=== PATIENT | female | born 1970 | race Caucasian/White ===

== ENCOUNTER 2016-04-01 19:18 | Emergency (ER) | payer SELFPAY ==
--- NOTE | 2016-04-01 19:45 | ED NURSING NOTES ---
Clinical Report - Nurses [facility] [address] [place] [address] 04/01/2016 19:21 Patient: RODDY HERNANDEZ TRIAGE Triage time 1937 PM. Acuity: LEVEL 4. Chief Complaint: ABDOMINAL PAIN, NAUSEA and VOMITING. Alert. No acute distress. --19:49 Darlin Loaiza R.N. 19:40 04/01/16. BP: 152/72. HR: 100. RR: 18. O2 saturation: 100% on room air. Pain level now: 11/03. --19:49 Darlin Loaiza R.N. late entry - 19:40 PM. --20:02 Darlin Loaiza R.N. 19:40 04/01/16. Temp: unable to obtain. --20:02 Darlin Loaiza R.N. Weight: 81.6 kg estimated. Height/Length: 65 inches Estimated. BMI: 30. --19:34 Darlin Loaiza R.N. Medications Unable to Obtain. Unknown. --19:40 Darlin Loaiza R.N. Medication/allergy information source: the patient. --19:49 Darlin Loaiza R.N. Allergies Unable to Obtain. --19:40 Darlin Loaiza R.N. History Arrived by private vehicle. Primary physician ([facility]). ( Pt states " I have gallstones, I was at [facility] for a HIDA scan friday" pt states n/v, abdominal pain "for 5 years and vomiting"). Relates location as in the right side of the back, right pelvic area and pelvic area. ( for approximately 2 weeks "ongoing for 5 years"). She has had nausea, vomiting and abdominal pain. Last oral intake by patient was dinner. 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 PAST MEDICAL HX: Immunizations: status is unknown. ( Unable to acquired hx from pt, once DOREEN Bejarano initiated triage, pt became frustrated, rolling her eyes, "was not expecting to get IV and blood work done". Pt was under the impression that all "clinics and hospitals system speak to one another" Educated, still patient did not want to stay "did not know what to expect" and took her belongings and left.). SOCIAL HX: No drug use. No recent travel. No known contact with a sick individual. ABUSE ASSESSMENT: No report of abuse. SELF HARM ASSESSMENT: A self harm assessment was performed. The patient answered "no" to the question "Do you have thoughts of harming or killing yourself?" and "Have you recently had thoughts about harming or killing others?". FALL RISK ASSESSMENT: Fall risk assessment completed. No fall risk identified. NUTRITIONAL RISK ASSESSMENT: The nutritional risk assessment revealed no deficiencies. FUNCTIONAL ASSESSMENT: Functional assessment: no impairments noted. LEARNING NEEDS ASSESSMENT: The learning needs assessment revealed no barriers. SKIN INTEGRITY ASSESSMENT: Skin integrity risk assessment completed. No skin integrity risk identified. --19:49 Darlin Loaiza R.N. PROBLEMS: Gallstone(s). --19:41 Darlin Loaiza R.N. ADDITIONAL SURGERIES: Unable to obtain. --19:41 Darlin Loaiza R.N. Interventions ID band on patient. --19:49 Darlin Loaiza R.N. DISPOSITION / DISCHARGE Departure time: 1940 PM. Condition at departure: unchanged. ( Pt decided to leave before any work up done, unable to obtain VS). The patient left prior to discharge education being provided. --19:50 Darlin Loaiza R.N. The patient left the Emergency Department without completion of treatment. The patient appears to be alert, oriented x4, coherent and in no acute distress. She stated is leaving the ED due to personal reasons (did not want to get lab work up). Prior to leaving the ED, she was advised to return if needed. She was informed of the risks of leaving and verbalized understanding of these risks. She left the Emergency Department ambulatory and via private vehicle. --19:52 Darlin Loaiza R.N. 19:40 04/01/16. BP: unable to obtain. HR: unable to obtain. RR: unable to obtain. O2 saturation: unable to obtain. Temp: unable to obtain. Pain level now unable to obtain. --20:00 Darlin Loaiza R.N. Locked/Released at 04/01/2016 20:03 by Darlin Loaiza R.N.
--- NOTE | 2016-04-01 19:45 | ED NURSING NOTES ---
Clinical Report - Nurses [facility] [address] [place] [address] 04/01/2016 19:21 Patient: RODDY HERNANDEZ TRIAGE Triage time 1937 PM. Acuity: LEVEL 4. Chief Complaint: ABDOMINAL PAIN, NAUSEA and VOMITING. Alert. No acute distress. --19:49 Darlin Loaiza R.N. 19:40 04/01/16. BP: 152/72. HR: 100. RR: 18. O2 saturation: 100% on room air. Pain level now: 11/03. --19:49 Darlin Loaiza R.N. late entry - 19:40 PM. --20:02 Darlin Loaiza R.N. 19:40 04/01/16. Temp: unable to obtain. --20:02 Darlin Loaiza R.N. Weight: 81.6 kg estimated. Height/Length: 65 inches Estimated. BMI: 30. --19:34 Darlin Loaiza R.N. Medications Unable to Obtain. Unknown. --19:40 Darlin Loaiza R.N. Medication/allergy information source: the patient. --19:49 Darlin Loaiza R.N. Allergies Unable to Obtain. --19:40 Darlin Loaiza R.N. History Arrived by private vehicle. Primary physician ([facility]). ( Pt states " I have gallstones, I was at [facility] for a HIDA scan friday" pt states n/v, abdominal pain "for 5 years and vomiting"). Relates location as in the right side of the back, right pelvic area and pelvic area. ( for approximately 2 weeks "ongoing for 5 years"). She has had nausea, vomiting and abdominal pain. Last oral intake by patient was dinner. 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 PAST MEDICAL HX: Immunizations: status is unknown. ( Unable to acquired hx from pt, once DOREEN Bejarano initiated triage, pt became frustrated, rolling her eyes, "was not expecting to get IV and blood work done". Pt was under the impression that all "clinics and hospitals system speak to one another" Educated, still patient did not want to stay "did not know what to expect" and took her belongings and left.). SOCIAL HX: No drug use. No recent travel. No known contact with a sick individual. ABUSE ASSESSMENT: No report of abuse. SELF HARM ASSESSMENT: A self harm assessment was performed. The patient answered "no" to the question "Do you have thoughts of harming or killing yourself?" and "Have you recently had thoughts about harming or killing others?". FALL RISK ASSESSMENT: Fall risk assessment completed. No fall risk identified. NUTRITIONAL RISK ASSESSMENT: The nutritional risk assessment revealed no deficiencies. FUNCTIONAL ASSESSMENT: Functional assessment: no impairments noted. LEARNING NEEDS ASSESSMENT: The learning needs assessment revealed no barriers. SKIN INTEGRITY ASSESSMENT: Skin integrity risk assessment completed. No skin integrity risk identified. --19:49 Darlin Loaiza R.N. PROBLEMS: Gallstone(s). --19:41 Darlin Loaiza R.N. ADDITIONAL SURGERIES: Unable to obtain. --19:41 Darlin Loaiza R.N. Interventions ID band on patient. --19:49 Darlin Loaiza R.N. DISPOSITION / DISCHARGE Departure time: 1940 PM. Condition at departure: unchanged. ( Pt decided to leave before any work up done, unable to obtain VS). The patient left prior to discharge education being provided. --19:50 Darlin Loaiza R.N. The patient left the Emergency Department without completion of treatment. The patient appears to be alert, oriented x4, coherent and in no acute distress. She stated is leaving the ED due to personal reasons (did not want to get lab work up). Prior to leaving the ED, she was advised to return if needed. She was informed of the risks of leaving and verbalized understanding of these risks. She left the Emergency Department ambulatory and via private vehicle. --19:52 Darlin Loaiza R.N. 19:40 04/01/16. BP: unable to obtain. HR: unable to obtain. RR: unable to obtain. O2 saturation: unable to obtain. Temp: unable to obtain. Pain level now unable to obtain. --20:00 Darlin Loaiza R.N. Locked/Released at 04/01/2016 20:03 by Darlin Loaiza R.N.
--- NOTE | 2016-04-01 20:27 | ED DISCHARGE INSTRUCTIONS ---
Patient: RODDY HERNANDEZ General Instructions [facility] VisitID: [id number] [address] [place] [address] 45y, F Registration Date/Time: 04/01/2016 abd pain of unclear etiology. (Electronically signed by Maliha Bejarano P.A.-C 04/01/2016 20:27)
--- NOTE | 2016-04-01 20:27 | ED MAR SUMMARY ---
..... Medication Administration Record [facility] [address], [place] [id number] Patient: RODDY HERNANDEZ Idalmis Visit ID: [id number] 45y, F Weight: 81.6 kg Height/Length: 65 in BMI: 30 ALLERGIES: Unable to Obtain
--- NOTE | 2016-04-01 20:27 | ED MED RECONCILIATION SUMMARY ---
Patient: RODDY HERNANDEZ Medication Reconciliation Report [facility] VisitID: [id number] [address] [place] [address] 45y, F Registration Date/Time: 04/01/2016 Weight: 81.6 kg Height/Length: 65 in. BMI: 30.0 ALLERGIES: Unable to Obtain The patient's Home Medications are listed below: Unable to obtain. The source(s) of the original Home Medication information: patient The following Medications were given to the patient in the Emergency Department: None. The following Medications were prescribed to the patient: None.
--- NOTE | 2016-04-01 20:27 | ED CLINICAL REPORT ---
Clinical Report - Physicians/Mid Levels [facility] [address] [place] [place] [address] 04/01/2016 19:21 Patient: RODDY HERNANDEZ Time Seen: 20:09 Apr 01 2016. Arrived- By private vehicle. Historian- patient. 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 It is described as "pain" and well localized and it is described as located in the right upper quadrant and epigastric area and in the upper abdomen and radiating to the right upper back. The patient has had nausea and vomiting. No diarrhea. (Abdominal pain over the last few weeks, worsening since Friday, worsening over the last 24 hours, specially after eating tacos. Patient reports recent ultrasound, HIDA scan, extensive workup for her gallbladder, at the [facility], which was inconclusive. Did not see them in clinic today, has been laying around and unable to eat at home today. NO diarrhea, no fevers/ no recent travel.). REVIEW OF SYSTEMS No constipation, black stools, difficulty with urination, pain with urination or missed periods. No headache or sore throat. All systems otherwise negative, except as recorded above. PAST HISTORY No history of gallstones or bowel obstruction. ADDITIONAL NOTES The nursing notes have been reviewed. PHYSICAL EXAM Vital Signs: 04/01/2016 19:40 BP: 152/72. HR: 100. RR: 18. O2 saturation: 100%. Pain level now: 9/10. Appearance: No acute distress. Neck: Normal inspection. CVS: Normal heart rate and rhythm. Heart sounds normal. Respiratory: No respiratory distress. Breath sounds normal. No accessory muscle use or decreased air movement. Abdomen: Mild tenderness in the right upper quadrant, epigastric area and left upper quadrant. Skin: Skin warm. Normal skin color. PROGRESS AND PROCEDURES Course of Care: After exam, and point patient will be obtaining lab workup, IV, and a gown for her, patient was frustrated, inquired if we can get labs from [facility], however at this hour unable to do so, and for patient that we are starting over here, as we have not met patient previously, and have to rule out any emergencies. Pt wished to go home at this time, and did not desire any work up. Patient is stable. Symptoms better. Patient/family counseled. Disposition: Discharged (ELOPED). CLINICAL IMPRESSION abd pain of unclear etiology. (Electronically signed by Maliha Bejarano P.A.-C 04/01/2016 20:27)
--- NOTE | 2016-04-01 20:27 | ED CLINICAL REPORT ---
Clinical Report - Physicians/Mid Levels [facility] [address] [place] [address] 04/01/2016 19:21 Patient: RODDY HERNANDEZ Time Seen: 20:09 Apr 01 2016. Arrived- By private vehicle. Historian- patient. 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 It is described as "pain" and well localized and it is described as located in the right upper quadrant and epigastric area and in the upper abdomen and radiating to the right upper back. The patient has had nausea and vomiting. No diarrhea. (Abdominal pain over the last few weeks, worsening since Friday, worsening over the last 24 hours, specially after eating tacos. Patient reports recent ultrasound, HIDA scan, extensive workup for her gallbladder, at the [facility], which was inconclusive. Did not see them in clinic today, has been laying around and unable to eat at home today. NO diarrhea, no fevers/ no recent travel.). REVIEW OF SYSTEMS No constipation, black stools, difficulty with urination, pain with urination or missed periods. No headache or sore throat. All systems otherwise negative, except as recorded above. PAST HISTORY No history of gallstones or bowel obstruction. ADDITIONAL NOTES The nursing notes have been reviewed. PHYSICAL EXAM Vital Signs: 04/01/2016 19:40 BP: 152/72. HR: 100. RR: 18. O2 saturation: 100%. Pain level now: 9/10. Appearance: No acute distress. Neck: Normal inspection. CVS: Normal heart rate and rhythm. Heart sounds normal. Respiratory: No respiratory distress. Breath sounds normal. No accessory muscle use or decreased air movement. Abdomen: Mild tenderness in the right upper quadrant, epigastric area and left upper quadrant. Skin: Skin warm. Normal skin color. PROGRESS AND PROCEDURES Course of Care: After exam, and point patient will be obtaining lab workup, IV, and a gown for her, patient was frustrated, inquired if we can get labs from [facility], however at this hour unable to do so, and for patient that we are starting over here, as we have not met patient previously, and have to rule out any emergencies. Pt wished to go home at this time, and did not desire any work up. Patient is stable. Symptoms better. Patient/family counseled. Disposition: Discharged (ELOPED). CLINICAL IMPRESSION abd pain of unclear etiology. (Electronically signed by Maliha Bejarano P.A.-C 04/01/2016 20:27)
--- NOTE | 2016-04-01 20:27 | ED MAR SUMMARY ---
..... Medication Administration Record [facility] [address] [place], [place] [id number] Patient: RODDY HERNANDEZ Idalmis Visit ID: [id number] 45y, F Weight: 81.6 kg Height/Length: 65 in BMI: 30 ALLERGIES: Unable to Obtain
--- NOTE | 2016-04-01 20:27 | ED DISCHARGE INSTRUCTIONS ---
Patient: RODDY HERNANDEZ General Instructions [facility] VisitID: [id number] [address] [place] [address] 45y, F Registration Date/Time: 04/01/2016 abd pain of unclear etiology. (Electronically signed by Maliha Bejarano P.A.-C 04/01/2016 20:27)
--- NOTE | 2016-04-01 20:27 | ED MED RECONCILIATION SUMMARY ---
Patient: RODDY HERNANDEZ Medication Reconciliation Report [facility] VisitID: [id number] [address] [place] [place] [address] 45y, F Registration Date/Time: 04/01/2016 Weight: 81.6 kg Height/Length: 65 in. BMI: 30.0 ALLERGIES: Unable to Obtain The patient's Home Medications are listed below: Unable to obtain. The source(s) of the original Home Medication information: patient The following Medications were given to the patient in the Emergency Department: None. The following Medications were prescribed to the patient: None.
== END 2016-04-01 19:40 | disposition home or self-care (01) ==
LOC: ED SRH 19:18
DX: R10.11 Right upper quadrant pain (principal); R10.13 Epigastric pain; R11.2 Nausea with vomiting, unspecified